=== PATIENT | male | born 1970 | race Caucasian/White ===

== ENCOUNTER 2023-12-06 09:04 | Outpatient (CLI) | payer MEDICAID ==
[~2023-12-06 09:04] MED LIST: ASPI-1264 PO; ATOR10TA PO; GLUC100017 PO; HYDR-4383 PO; HYDR12.5 PO; LISI20TA28 PO; NABU-141 PO
== END 2023-12-06 23:59 | disposition home or self-care (01) ==
LOC: MRI 09:04
PROVIDERS: ATTEND Family Medicine Sports Medicine
DX: M16.11 Unilateral primary osteoarthritis, right hip (principal); M25.851 Other specified joint disorders, right hip; M25.551 Pain in right hip
CPT/HCPCS: 73721